=== PATIENT | female | born 1960 | race Caucasian/White ===

== ENCOUNTER 2016-09-10 07:29 | Day surgery (SDC) | payer BC ==
[2016-09-04 14:06] VITALS: BMI 16.5
[~2016-09-10 07:29] MED LIST: LACTATED RINGERS 1,000 ML IV SCH
[2016-09-10 07:56] VITALS: RESP 16; TEMP 97.8
[2016-09-10] MEDS ORDERED: LIDOCAINE 1% 20 ML VIAL (10MG/ML) FOR IV START INTRADERMA ONE (08:10)
[2016-09-10] MEDS ORDERED: fentaNYL (PF) 50 MCG/ML 2 ML AMP ONE (08:48)
[2016-09-10] MEDS ORDERED: PROPOFOL 10 MG/ML 20 ML VIAL IV ONE (08:48)
[2016-09-10] MEDS ORDERED: MIDAZOLAM 2 MG/2 ML VIAL ONE (08:48)
--- NOTE | 2016-09-10 09:14 | P.PCN ---
Date of Procedure: 09/10/16 Procedure(s) Performed: Procedure: Esophagogastroduodenoscopy and biopsy. Preoperative diagnosis: Epigastric pain and weight loss. Postoperative diagnosis: 1. Small sliding hiatal hernia with no obvious esophagitis or complicated reflux disease. 2. Mild gastritis and duodenitis. 3. Multiple biopsies obtained from the duodenum, antrum and esophagus. Preparation and sedation: Was provided by anesthesia. Brief clinical history: The patient is a 56-year-old female who is referred for epigastric pain which she had since around January of last year. She failed to respond to a trial of medical therapy. CT of the abdomen was not revealing. She had prior cholecystectomy. She has lost around 8 pounds since that time. This evaluation is to assess for peptic ulcer disease or other pathology. Procedure: With the patient on her left lateral decubitus position and after informed consent and adequate sedation, I passed the Olympus-GIF 160 video upper endoscope through the cricopharyngeus down the esophagus. GE junction was around 38 cm from the incisors and there was a small sliding hiatal hernia between 1 and 2 cm. There was no evidence of erosions, ulcers, strictures or Hylton's esophagus. The endoscope was then passed into the stomach which was insufflated with air and inspected in detail including the retroflex view in the cardia. There was some mottling and erythema in the antrum but no ulcers or erosions. Similar findings were seen in the duodenum without any ulcers, erosions or bleeding. I obtained multiple biopsies from the duodenum, antrum and esophagus then the endoscope was withdrawn. The patient tolerated the procedure well. Plan: The patient was reassured. Will await biopsy results. She'll follow-up with you as planned and I will be happy to see in the office of her symptoms persist.
[2016-09-10 09:43] VITALS: BP 123/73; PULSE 87
== END 2016-09-10 09:57 | disposition home or self-care (01) ==
LOC: ORWHC2ENDO 07:29
DX: K29.50 Unspecified chronic gastritis without bleeding (principal); K20.9 Esophagitis, unspecified; K44.9 Diaphragmatic hernia without obstruction or gangrene; J44.9 Chronic obstructive pulmonary disease, unspecified; J45.909 Unspecified asthma, uncomplicated; E07.9 Disorder of thyroid, unspecified; Z88.0 Allergy status to penicillin; Z79.1 Long term (current) use of non-steroidal anti-inflammatories (NSAID); Z79.899 Other long term (current) drug therapy; Z90.49 Acquired absence of other specified parts of digestive tract
CPT/HCPCS: 88305; 88342; 43239; J2250; J3010; J2704; 99153

== ENCOUNTER → 2017-02-15 | Outpatient (CLI) | payer BC ==
--- NOTE | 2017-02-15 08:59 | MM ---
Reason for exam: clinical finding. Last mammogram was performed 1 year ago. History: Patient is postmenopausal. Family history of breast cancer in paternal aunt at age 58. Physical Findings: Nurse did not find any significant physical abnormalities on exam. MG Diagnostic Mammo w CAD MICHAEL Bilateral CC and MLO view(s) were taken. Prior study comparison: February 14, 2016, bilateral MG screening mammo w CAD. February 04, 2015, bilateral MG screening mammo w CAD. The breast tissue is heterogeneously dense. This may lower the sensitivity of mammography. There is no discrete abnormality. No significant new findings when compared with previous films. These results were verbally communicated with the patient and result sheet given to the patient on 02/15/17. ASSESSMENT: Negative, BI-RAD 1 RECOMMENDATION: Routine screening mammogram of both breasts in 1 year.
== END | disposition home or self-care (01) ==
LOC: RADMAMWWP 07:00
PROVIDERS: ATTEND Obstetrics & Gynecology
DX: N64.4 Mastodynia (principal)

== ENCOUNTER → 2017-06-17 | Outpatient (CLI) | payer BC ==
--- NOTE | 2017-06-17 21:40 | XR ---
EXAMINATION TYPE: XR chest 2V DATE OF EXAM: 06/17/2017 COMPARISON: None HISTORY: 57-year-old female cough, chest pain, elevated WBC TECHNIQUE: PA and lateral views FINDINGS: The cardiomediastinal silhouette, aorta, and pulmonary vasculature are within normal limits. Hyperinf lation with flattening of the hemidiaphragms. Lungs and pleural spaces are clear. IMPRESSION: No acute cardiopulmonary process. Correlate for underlying COPD.
== END ==
LOC: RADXRYALE 15:20
PROVIDERS: ATTEND Physician Assistant Medical
DX: D72.829 Elevated white blood cell count, unspecified (principal); R05 Cough; R07.9 Chest pain, unspecified
CPT/HCPCS: 71020

== ENCOUNTER → 2018-03-31 | Outpatient (CLI) | payer BC ==
--- NOTE | 2018-03-31 09:32 | US ---
EXAMINATION TYPE: US duplex aorta DATE OF EXAM: 03/31/2018 COMPARISON: CT abdomen and pelvis February 01 2016 CLINICAL HISTORY: Left Upper Lower Quad pain R10.32 R10.12. Midline and left flank pain x couple mo nths EXAM MEASUREMENTS: Abdominal Aorta: Proximal: 2.2 x 2.3cm Mid: 1.5 x 1.8cm Distal: 1.3 x 1.5cm Right Iliac: 0.7 x 0.7cm Left Iliac: 0.6 x 0.7cm Mild to moderate plaque is seen throughout the visualized aorta seen through the bifurcation. IMPRESSION: No AAA.
--- NOTE | 2018-03-31 09:33 | US ---
EXAMINATION TYPE: US kidneys/renal and bladder DATE OF EXAM: 03/31/2018 COMPARISON: CT abdomen and pelvis February 01 2016 CLINICAL HISTORY: Left Upper Lower Quad pain R10.32 R10.12. Midline and left flank pain x couple mo nths, frequent UTI's EXAM MEASUREMENTS: Right Kidney: 9.5 x 3.8 x 4.5 cm Left Kidney: 9.9 x 5.0 x 4.0 cm Right Kidney: no hydronephrosis or masses seen Left Kidney: no hydronephrosis or masses seen Bladder: wnl Bilateral Jets seen: yes There is no evidence for hydronephrosis at this point in time. No nephrolithiasis is seen. No jj s are identified. The urinary bladder is anechoic. Bilateral ureteral jets are seen. IMPRESSION: Unremarkable study.
== END | disposition home or self-care (01) ==
LOC: RADUSMAIN 08:19
PROVIDERS: ATTEND Family Medicine
DX: R10.32 Left lower quadrant pain (principal); R35.0 Frequency of micturition; R31.9 Hematuria, unspecified
CPT/HCPCS: 76770; 93979

== ENCOUNTER → 2020-10-28 | Outpatient (CLI) | payer BC ==
--- NOTE | 2020-10-31 13:44 | USB ---
Reason for exam: clinical finding. History: Patient is postmenopausal. Family history of breast cancer in paternal aunt at age 58. Indicated problem(s): lump or thickening in the left breast. Physical Findings: Nurse Summary: Patient complains of left axilla/upper outer quadrant pain x 3 months (nurse darci). US Breast LT Left complete breast ultrasound includes all four quadrants, the retroareolar region and axilla. Finding demonstrates no cystic or solid lesion seen. These results were verbally communicated with the patient and result sheet given to the patient on 10/28/20. ASSESSMENT: Negative, BI-RAD 1 RECOMMENDATION: Follow-up diagnostic mammogram of both breasts. Manage on a clinical basis with regard to left pain. Due now for mammogram. Patient states she will come back to mammogram when pain gets better.
== END | disposition home or self-care (01) ==
LOC: RADUSWWP 08:05
PROVIDERS: ATTEND Family Medicine
DX: N64.4 Mastodynia (principal); Z78.0 Asymptomatic menopausal state; Z80.3 Family history of malignant neoplasm of breast

== ENCOUNTER → 2021-01-18 | Outpatient (CLI) | payer BC ==
--- NOTE | 2021-01-18 15:57 | US ---
EXAMINATION TYPE: US thyroid st tissue head/neck DATE OF EXAM: 01/18/2021 COMPARISON: NONE CLINICAL HISTORY: R94.6 abnormal results of thyroid function stud,E1310,R5383. Abn labs GLAND SIZE: Right Lobe: 5.1 x 2.0 x 2.8 cm Overall Parenchyma: heterogenous Left Lobe: 5.9 x 1.3 x 2.2 cm Overall Parenchyma: heterogeneous Isthmus Thickness: 0.4 cm NODULES RIGHT: # of nodules measured on right: 1 1. 2.1 X 1.9 x 1.6 cm, mid , solid or almost completely solid, isoechoic nodule, which is taller th an wide, with ill-defined margins, with punctate echogenic foci. Prior size: DELIVERY TECHNICIAN LEFT: # of nodules measured on left: 0 ISTHMUS: # of nodules measured in the isthmus: 0 Bilateral neck scanned, no evidence of lymphadenopathy. Heterogeneous normal-sized thyroid with suspicious 2.1 cm right thyroid nodule. IMPRESSION: As above. Sampling is recommended. 2017 ACR TI-RADS LEVEL: TI-RADS 5 - Highly Suspicious: Follow if > 0.5 cm, FNA if > 1.0 cm *Highest TI-RADS level nodule reported
== END | disposition home or self-care (01) ==
LOC: RADUSWWP 15:28
PROVIDERS: ATTEND Family Medicine
DX: E04.1 Nontoxic single thyroid nodule (principal); R13.10 Dysphagia, unspecified; R53.83 Other fatigue
CPT/HCPCS: 76536

== ENCOUNTER 2021-02-16 09:31 | Day surgery (SDC) | payer BC ==
[2021-02-16 09:47] VITALS: BP 137/76; PULSE 87; RESP 16; TEMP 99
--- NOTE | 2021-02-16 11:51 | US ---
EXAMINATION TYPE: US FNA first lesion DATE OF EXAM: 02/16/2021 COMPARISON: NONE HISTORY: Thyroid nodule. Maximal barrier technique was utilized. After informed consent, skin overlying the right lobe thyroi d nodule was localized with ultrasound and the overlying skin prepped and draped. Ultrasound was util ized using sterile technique. Lidocaine was used for local anesthesia. Five passes with a 25-gauge n eedle were made into the nodule and aspirated specimen was submitted to cytology. Following the proc edure hemostasis achieved. No immediate complication. The patient discharged in stable condition. IMPRESSION: STATUS POST ULTRASOUND GUIDED FINE NEEDLE ASPIRATION OF RIGHT THYROID NODULE, PATHOLOGY I S PENDING. THIS PROCEDURE WAS PERFORMED BY THE UNDERSIGNED.
== END 2021-02-16 11:10 | disposition home or self-care (01) ==
LOC: RADPROMAIN 09:31
PROVIDERS: ATTEND Family Medicine
DX: E04.1 Nontoxic single thyroid nodule (principal); R93.0 Abnormal findings on diagnostic imaging of skull and head, not elsewhere classified
CPT/HCPCS: 10005; 88173; 88305

== ENCOUNTER 2021-04-25 08:54 | Day surgery (SDC) | payer BC ==
[2021-04-21 09:53] VITALS: BMI 19.5
[~2021-04-25 08:54] MED LIST changes: -LACTATED RINGERS 1,000 ML IV SCH; +LIDOCAINE 1% (10MG/ML) FOR IV START INTRADERMA PRN
[2021-04-25 09:19] VITALS: TEMP 97.6
[2021-04-25] MEDS: LACTATED RINGERS 1,000 ML IV SCH ×2 (09:31→09:39)
[2021-04-25] MEDS ORDERED: fentaNYL (PF) 50 MCG/ML 2 ML AMP ONE (09:42)
[2021-04-25] MEDS ORDERED: MIDAZOLAM 2 MG/2 ML VIAL ONE (09:42)
[2021-04-25] MEDS ORDERED: PROPOFOL 10 MG/ML 20 ML VIAL IV ONE (09:42)
--- NOTE | 2021-04-25 09:44 | P.GSHP ---
History of Present Illness H&P Date: 04/25/21 Chief Complaint: Colon cancer screening 61-year-old female here today for colonoscopy. Last colonoscopy 5 years ago. Patient has a history of adenomatous colon polyps. Was having some diarrhea previously. That is resolved. No rectal bleeding. Past Medical History Past Medical History: COPD, GERD/Reflux Additional Past Medical History / Comment(s): C/O diarrhea daily from 03/25/21- 04/09/21 and again on 04/13/21 and then diarrhea and vomiting on 04/20/21. States calling Dr Blum to notify him, Colonoscopy was scheduled prior to having these symptoms. "Myocardial strain from COPD flare up 11/30." History of Any Multi-Drug Resistant Organisms: None Reported Past Surgical History: Cholecystectomy, Orthopedic Surgery Additional Past Surgical History / Comment(s): Ovary removed, colonoscopy, right carpal tunnel surgery. Past Anesthesia/Blood Transfusion Reactions: No Reported Reaction Past Psychological History: No Psychological Hx Reported Smoking Status: Current every day smoker Past Alcohol Use History: None Reported Additional Past Alcohol Use History / Comment(s): Has been smoking for 48 yrs, 3/4 PPD. Past Drug Use History: None Reported - Past Family History Mother Family Medical History: Cancer Medications and Allergies Home Medications Medication Instructions Recorded Confirmed Type Albuterol Sulfate [Proair 90 mcg INHALATION DAILY PRN 02/07/21 04/25/21 History Respiclick] Aspirin [Adult Low Dose Aspirin EC] 81 mg PO DAILY 02/07/21 04/25/21 History Fluticasone Propion/Salmeterol 1 inhalation PO DAILY 02/07/21 04/25/21 History [Fluticasone-Salmeterol 250-50] Losartan [Cozaar] 25 mg PO QAM 02/07/21 04/25/21 History Metoprolol Succinate [Toprol XL] 25 mg PO QAM 02/07/21 04/25/21 History Albuterol Sulfate [Proair Hfa] 1 - 2 puff INHALATION DIRECTED 04/21/21 04/25/21 History All Day Allergy 1 tab PO DAILY 04/21/21 04/25/21 History Cranberry Fruit Concentrate [Azo 250 mg PO DAILY 04/21/21 04/25/21 History Cranberry] Ipratropium [place] [Atrovent Hfa] 2 puff INHALATION DIRECTED 04/21/21 04/25/21 History Zinc 25 mg PO DAILY 04/21/21 04/25/21 History Allergies Allergy/AdvReac Type Severity Reaction Status Date / Time Penicillins Allergy Anaphylaxis Verified 04/25/21 09:19 pneumococcal vaccine Allergy Swelling Verified 04/25/21 09:19 [From Pneumovax-23] Surgical - Exam Vital Signs Temp Pulse Resp BP Pulse Ox 97.6 F 89 18 126/65 100 04/25/21 09:16 04/25/21 09:16 04/25/21 09:16 04/25/21 09:16 04/25/21 09:16 Physical exam: General: Well-developed, well-nourished HEENT: Normocephalic, sclerae nonicteric Abdomen: Nontender, nondistended Extremities: No edema Neuro: Alert and oriented Assessment and Plan (1) Colon cancer screening Narrative/Plan: Will proceed with colonoscopy Current Visit: Yes Status: Acute Code(s): Z12.11 - ENCOUNTER FOR SCREENING FOR MALIGNANT NEOPLASM OF COLON SNOMED Code(s): 643882906
--- NOTE | 2021-04-25 10:04 | P.PCN ---
Date of Procedure: 04/25/21 Procedure(s) Performed: PREOPERATIVE DIAGNOSIS: Colon cancer screening, history of polyps POSTOPERATIVE DIAGNOSIS: Transverse colon possible polyp, diverticulosis PROCEDURE: Colonoscopy with biopsy ANESTHESIA: MAC SURGEON: Luis F Blum M.D. SPECIMENS: Transverse colon polyp ENDOSCOPIC PROCEDURE: The patient was placed on the endoscopy table in the left decubitus position. The Olympus colonoscope was inserted into the anus and passed under direct visualization to the base of the cecum. The appendiceal orifice was visualized. From that point the scope was slowly withdrawn inspecting all surfaces carefully. There were no neoplastic inflammatory or polypoid lesions throughout the cecum or ascending colon. In the transverse colon was noted to be a sessile area that measured 3 cm in diameter that had some mild induration and slight elevation of the mucosal surfaces. This was considered a possible adenomatous polyp. Cold biopsies were taken of that area. The remainder of the transverse descending sigmoid and rectum appeared normal. There was mild left-sided diverticulosis. Digital rectal examination was normal. The patient was taken to the recovery room in stable condition per anesthesia guidelines. RECOMMENDATIONS: Await biopsy results. If adenomatous polyp identified will require repeat endoscopy with EMR or fulguration. Otherwise plan follow-up colonoscopy 5 years.
[2021-04-25 10:09] VITALS: RESP 16
[2021-04-25 10:27] VITALS: BP 107/74; PULSE 92
== END 2021-04-25 10:42 | disposition home or self-care (01) ==
LOC: ORWHC2ENDO 08:54
PROVIDERS: ATTEND Surgery
DX: Z12.11 Encounter for screening for malignant neoplasm of colon (principal); F17.200 Nicotine dependence, unspecified, uncomplicated; J44.9 Chronic obstructive pulmonary disease, unspecified; K21.9 Gastro-esophageal reflux disease without esophagitis; D12.3 Benign neoplasm of transverse colon; Z79.51 Long term (current) use of inhaled steroids; Z79.82 Long term (current) use of aspirin; Z86.010 Personal history of colon polyps; Z88.0 Allergy status to penicillin; I10 Essential (primary) hypertension; Z79.899 Other long term (current) drug therapy; Z90.49 Acquired absence of other specified parts of digestive tract; Z90.721 Acquired absence of ovaries, unilateral
CPT/HCPCS: 45380; 88305; J2250; J3010; J2704

== ENCOUNTER → 2021-09-05 | Outpatient (CLI) | payer BC ==
--- NOTE | 2021-09-05 23:25 | US ---
EXAMINATION TYPE: US thyroid st tissue head/neck DATE OF EXAM: 09/05/2021 COMPARISON: 01/18/2021 CLINICAL HISTORY: 61-year-old female R94.6 R13.10 R53.83 E07.9. Follow up thyroid nodule, history of thyroid FNA Technique: Multiple sonographic images of the thyroid gland are obtained. FINDINGS: GLAND SIZE: Right Lobe: 5.3 x 2.1 x 2.1 cm Overall Parenchyma: homogenous Left Lobe: 5.2 x 2.1 x 1.5 cm Overall Parenchyma: homogeneous Isthmus Thickness: 0.3 cm NODULES RIGHT: # of nodules measured on right: 1 1. 1.7 X 1.7 x 1.4 cm, mid mid, solid or almost completely solid, isoechoic nodule, which is as purnima l as it is wide, with ill-defined margins, with echogenic foci. Prior size: 2.1 x 1.9 x 1.6 cm LEFT: # of nodules measured on left: 1 1. 0.8 X 0.5 x 0.7 cm, upper lateral, solid or almost completely solid, isoechoic nodule, which is wider than tall, with smooth margins, without echogenic foci. Prior size: no previous ISTHMUS: # of nodules measured in the isthmus: 0 Bilateral neck scanned, no evidence of lymphadenopathy. IMPRESSION: 1. Multinodular goiter. 2. Dominant 1.7 cm solid nodule right mid pole, now smaller, previously measuring 2.1 cm. 3. An 8 mm solid TR3 nodule left upper pole not clearly seen previously. This can be reassessed at fo llow-up.
== END | disposition home or self-care (01) ==
LOC: RADUSWWP 13:31
PROVIDERS: ATTEND Family Medicine
DX: E04.2 Nontoxic multinodular goiter (principal)
CPT/HCPCS: 76536

== ENCOUNTER 2021-11-07 09:20 | Day surgery (SDC) | payer BC ==
[2021-11-02 15:14] VITALS: BMI 19.3
[~2021-11-07 09:20] MED LIST changes: +LACTATED RINGERS 1,000 ML IV SCH; -LIDOCAINE 1% (10MG/ML) FOR IV START INTRADERMA PRN
[2021-11-07] MEDS ORDERED: LIDOCAINE 1% (10MG/ML) FOR IV START INTRADERMA ONE (10:06)
[2021-11-07 10:11] VITALS: TEMP 97.8
[2021-11-07] MEDS ORDERED: PROPOFOL 10 MG/ML 20 ML VIAL IV ONE (10:52)
[2021-11-07] MEDS ORDERED: LIDOCAINE 1% INJ 10MG/ML (20 ML MDV) ONE (10:52)
--- NOTE | 2021-11-07 11:05 | P.PCN ---
Date of Procedure: 11/07/21 Procedure(s) Performed: BRIEF HISTORY: Patient is a 61-year-old, pleasant, white female scheduled for an upper endoscopy as a part of evaluation of epigastric pain and GERD of several years duration. She was on Prilosec 20 mg daily for several years and recently was changed to Pepcid 20 mg twice daily and still has no improvement in his symptoms.. PROCEDURE PERFORMED: Esophagogastroduodenoscopy with biopsy. PREOPERATIVE DIAGNOSIS: GERD/defects esophagus. IV sedation per anesthesia. PROCEDURE: After informed consent was obtained, the patient was brought into the endoscopy unit. IV sedation was administered by Anesthesia under continuous monitoring. Initially the Olympus GIF-140 video endoscope was inserted into the mouth. Esophagus intubated without any difficulty. It was gradually advanced into the stomach and duodenum and carefully examined. The bulb had mild duodenitis and the second part of the duodenum appeared normal. The scope at this time was withdrawn to the stomach, adequately insufflated with air, and upon careful examination, mucosa of the antrum scattered erosions and erythema consistent with gastritis and biopsies were done from this area. The, body, cardia and the fundus appeared normal. The scope was then withdrawn into the esophagus. The GE junction was located at 39 cm from the incisors. Under size hiatal hernia noted. The esophagus appeared normal. There were no erosions or ulcerations seen and biopsies were done from the distal esophagus and the patient tolerated the procedure well. IMPRESSION: 1. Mild antral gastritis and duodenitis. 2. Small to moderate size hiatal hernia but no evidence of esophagitis. RECOMMENDATIONS: The findings of this examination were discussed with the patient as well as a family. She was advised to continue with Pepcid 20 mg twice daily and follow antireflux measures. She will benefit from adding Carafate 1 g 4 times daily for her symptoms. She was advised to follow with Dr. Ridley as scheduled.
[2021-11-07 11:27] VITALS: BP 100/57; PULSE 95; RESP 20
== END 2021-11-07 11:56 | disposition home or self-care (01) ==
LOC: ORWHC2ENDO 09:20
PROVIDERS: ATTEND Internal Medicine Gastroenterology
DX: K29.50 Unspecified chronic gastritis without bleeding (principal); K21.00 Gastro-esophageal reflux disease with esophagitis, without bleeding; K29.80 Duodenitis without bleeding; K44.9 Diaphragmatic hernia without obstruction or gangrene; I11.0 Hypertensive heart disease with heart failure; I50.9 Heart failure, unspecified; I42.9 Cardiomyopathy, unspecified; F17.200 Nicotine dependence, unspecified, uncomplicated; Z79.82 Long term (current) use of aspirin; Z79.899 Other long term (current) drug therapy; Z90.49 Acquired absence of other specified parts of digestive tract; Z98.890 Other specified postprocedural states; Z88.0 Allergy status to penicillin; Z88.8 Allergy status to other drugs, medicaments and biological substances
CPT/HCPCS: 88305; 43239; J2001; J2704

== ENCOUNTER → 2021-12-06 | Outpatient (CLI) | payer BC ==
--- NOTE | 2021-12-07 06:25 | US ---
EXAMINATION TYPE: US thyroid st tissue head/neck DATE OF EXAM: 12/06/2021 COMPARISON: US 2021 CLINICAL HISTORY: Goiter E04.2. Thyroid nodules, history of FNA GLAND SIZE: Right Lobe: 5.7 x 2.0 x 1.9 cm Overall Parenchyma: homogenous Left Lobe: 4.9 x 1.7 x 1.3 cm Overall Parenchyma: homogeneous Isthmus Thickness: 0.3 cm NODULES RIGHT: # of nodules measured on right: 1 1. 1.9 X 1.8 x 1.5 cm, mid mid, solid or almost completely solid, hypoechoic nodule, which is talle r than wide, with ill-defined margins, with echogenic foci. Prior size: 1.7 x 1.7 x 1.4 cm LEFT: # of nodules measured on left: 1 1. 0.7 X 0.5 x 0.6 cm, upper lateral, solid or almost completely solid, isoechoic nodule, which is wider than tall, with ill-defined margins, without echogenic foci. Prior size: 0.8 x 0.5 x 0.7 cm ISTHMUS: # of nodules measured in the isthmus: 0 Bilateral neck scanned, no evidence of lymphadenopathy. Homogeneous normal-sized thyroid with stable bilateral single nodules as noted above. IMPRESSION: As above. No significant change from prior.
== END | disposition home or self-care (01) ==
LOC: RADUSWWP 10:24
PROVIDERS: ATTEND Family Medicine
DX: E04.2 Nontoxic multinodular goiter (principal)
CPT/HCPCS: 76536

== ENCOUNTER → 2022-04-30 | Outpatient (CLI) | payer BC ==
--- NOTE | 2022-04-30 09:39 | MM ---
Reason for Exam: Follow-up at short interval from prior study. Last mammogram was performed 1 year(s) and 3 month(s) ago. Patient History: Menarche at age 13. First Full-Term at age 19. Right ovary removed at age 27. Postmenopausal. Paternal aunt had breast cancer, age 58. Risk Values: Katrin 5 year model risk: 1.1%. NCI Lifetime model risk: 5.0%. Prior Study Comparison: 02/04/2015 Bilateral Screening Mammogram, [facility]. 02/14/2016 Bilateral Screening Mammogram, [facility]. 02/15/2017 Bilateral Diagnostic Mammogram, [facility]. 11/21/2018 Bilateral MG screening mammo w CAD - 2, [facility] [place] . 01/20/2021 Bilateral MG screening mammo w CAD - 2, [facility] [place] . Tissue Density: There are scattered fibroglandular densities. Findings: Analyzed By CAD. Chronic nodularity posterior central left MLO view. Benign gliosis calcification on the left. No significant change from prior exams. Overall Assessment: Benign, BI-RAD 2 Management: Screening Mammogram of both breasts in 1 year. 1. Patient should continue monthly self breast exams. 2. A clinical breast exam by your physician is recommended on an annual basis. 3. This exam should not preclude additional follow-up of suspicious palpable abnormalities. Electronically signed and approved by: Carl Barraza M.D. Radiologist
== END | disposition home or self-care (01) ==
LOC: RADMAMWWP 08:43
PROVIDERS: ATTEND Family Medicine
DX: R92.8 Other abnormal and inconclusive findings on diagnostic imaging of breast (principal); Z78.0 Asymptomatic menopausal state; Z80.3 Family history of malignant neoplasm of breast
CPT/HCPCS: 77066

== ENCOUNTER 2022-07-02 12:39 | Day surgery (SDC) | payer BC ==
[2022-07-02 13:13] VITALS: TEMP 98.3
--- NOTE | 2022-07-02 13:55 | US ---
ULTRASOUND GUIDED FNA THYROID BIOPSY: CLINICAL HISTORY: Right thyroid nodule FINDINGS: The procedure was explained to the patient. The risks, complications, benefits and alternatives were discussed and any questions were answered. Informed consent was obtained. Patient was placed supin e on the ultrasound table and prepped and draped in the usual sterile fashion. Utilizing a 25 gauge needle, five passes were made into the right thyroid nodule. Patient was stable throughout the procedure. Pathology is pending. All elements of maximal barrier technique were utilized. IMPRESSION: 1. Successful ultrasound guided FNA thyroid biopsy.
[2022-07-02 14:08] VITALS: BP 115/75; PULSE 89; RESP 18
== END 2022-07-02 13:55 | disposition home or self-care (01) ==
LOC: RADPROMAIN 12:39
PROVIDERS: ATTEND Internal Medicine Endocrinology, Diabetes & Metabolism
DX: E04.1 Nontoxic single thyroid nodule (principal); Z85.828 Personal history of other malignant neoplasm of skin
CPT/HCPCS: 10005; 88173; 88305

== ENCOUNTER → 2023-04-23 | Outpatient (CLI) | payer BC ==
--- NOTE | 2023-04-23 11:07 | CTL ---
EXAMINATION TYPE: CT Low Dose Lung DATE OF EXAM ORDERED: 04/23/2023 COMPARISON: None HISTORY: . Low Dose CT Lung Screening CT DLP: [address] CTDI: 1.1 mGy IV CONTRAST USED: None. SCREENING VISIT: First visit COMPARISON: None. TECHNIQUE: Low dose computed tomography scan was performed through the chest at 1 millimeter thick se ctions and reconstructed images in the coronal plane at [address] DIAGNOSTIC QUALITY: Satisfactory FINDINGS: LUNG NODULES: Right upper lobe pulmonary nodule measures 3.1 mm image 69. Right apical pulmonary nodu le measures 4 mm image 47. Left upper lobe pulmonary nodule measures 3.1 mm image 108. LUNGS: COPD: Severity: Mild to moderate Fibrosis: Severity:None Lymph nodes: None Other findings: None RIGHT PLEURAL SPACE: Effusion: None Calcification: None Thickening: None Pneumothorax: None LEFT PLEURAL SPACE: Effusion: None Calcification: None Thickening: None Pneumothorax: None HEART: Heart Size: Mildly enlarged Coronary calcification: Mild Pericardial effusion: None OTHER FINDINGS: Upper abdomen: No significant abnormality Bony thorax: Degenerative changes Supraclavicular region: No significant abnormalityOther: No significant abnormalityI IMPRESSION: Sub-5 mm pulmonary nodules noted as discussed above. FOLLOW UP CT CHEST RECOMMENDATION: Follow-up screening in one year CT LUNG RAD: LUNG RAD CATEGORY 2 benign appearance and/or behavior.
== END | disposition home or self-care (01) ==
LOC: RADCTMAIN 10:25
PROVIDERS: ATTEND Family Medicine
DX: Z12.2 Encounter for screening for malignant neoplasm of respiratory organs (principal); R91.8 Other nonspecific abnormal finding of lung field; F17.210 Nicotine dependence, cigarettes, uncomplicated
CPT/HCPCS: 71271

== ENCOUNTER → 2023-04-30 | Outpatient (CLI) | payer BC ==
--- NOTE | 2023-05-02 09:20 | MM ---
Reason for Exam: Screening (asymptomatic). Last screening mammogram was performed 12 month(s) ago. Patient History: Menarche at age 13. First Full-Term at age 19. Right ovary removed at age 27. Postmenopausal. Paternal aunt had breast cancer, age 58. Risk Values: Katrin 5 year model risk: 1.1%. NCI Lifetime model risk: 4.9%. Prior Study Comparison: 11/21/2018 Bilateral MG screening mammo w CAD - 2, [facility] [place] . 01/20/2021 Bilateral MG screening mammo w CAD - 2, [facility] [place] . 04/30/2022 Bilateral MG diagnostic mammo w CAD MICHAEL, [facility]. Tissue Density: The breast tissue is heterogeneously dense. This may lower the sensitivity of mammography. Findings: Analyzed By CAD. There is no suspicious group of microcalcifications or new suspicious mass in either breast. Overall Assessment: Negative, BI-RAD 1 Management: Screening Mammogram of both breasts in 1 year. . Patient should continue monthly self-breast exams. A clinical breast exam by your physician is recommended on an annual basis. This exam should not preclude additional follow-up of suspicious palpable abnormalities. Note on Katrin scores and lifetime risk: 1. A Katrin score greater than 3% is considered moderate risk. If this is the case, consider specialist referral to assess eligibility for a risk reducing agent. 2. If overall lifetime risk for the development of breast cancer is 20% or higher, the patient may qualify for future screening with alternating mammogram and breast MRI. Electronically signed and approved by: Florentin Strickland M.D. Radiologis
== END | disposition home or self-care (01) ==
LOC: RADMAMWWP 12:54
PROVIDERS: ATTEND Family Medicine
DX: Z12.31 Encounter for screening mammogram for malignant neoplasm of breast (principal); Z78.0 Asymptomatic menopausal state; Z80.3 Family history of malignant neoplasm of breast
CPT/HCPCS: 77063; 77067

== ENCOUNTER → 2024-06-24 | Outpatient (CLI) | payer BC ==
--- NOTE | 2024-06-28 17:38 | MM ---
Reason for Exam: Screening (asymptomatic). Last mammogram was performed 1 year(s) and 2 month(s) ago. Patient History: Menarche at age 13. First Full-Term at age 19. Right ovary removed at age 27. Postmenopausal. Paternal aunt had breast cancer, age 58. Risk Values: Katrin 5 year model risk: 1.2%. NCI Lifetime model risk: 4.7%. Prior Study Comparison: 01/20/2021 Bilateral MG screening mammo w CAD - 2, Dave Brandoncayla Hendrickson . 04/30/2022 Bilateral MG diagnostic mammo w CAD [facility]HA[facility], [facility]. 04/30/2023 Bilateral MG 3D screening mammo w/cad, [facility]. Tissue Density: The breasts are heterogeneously dense, which may obscure small masses. Findings: Analyzed By CAD. The pattern is symmetrical. No significant interval changes. Calcification in the left breast. No suspicious groups of microcalcifications, spiculated or lobular masses, architectural distortion or other secondary signs of malignancy are mammographically apparent. Overall Assessment: Benign, BI-RAD 2 Management: Screening Mammogram of both breasts in 1 year. A negative mammogram report should not preclude additional follow up of suspicious palpable abnormalities. Patient should continue monthly self breast exam. A clinical breast exam by your physician is recommended on an annual basis and results should be correlated with mammographic findings. Note on Katrin scores and lifetime risk: 1. A Katrin score greater than 3% is considered moderate risk. If this is the case, consider specialist referral to assess eligibility for a risk reducing agent. 2. If overall lifetime risk for the development of breast cancer is 20% or higher, the patient may qualify for future screening with alternating mammogram and breast MRI. [facility], , 06/28/2024 5:35 PM. Electronically signed and approved by: Rad Gutierrez D.O. Radiologis
--- NOTE | 2024-06-28 22:34 | BD ---
EXAMINATION TYPE: Axial Bone Density DATE OF EXAM: 06/24/2024 CLINICAL HISTORY: 64 years old Female. ICD-10 CODE: M94.9 DISORDER OF BONE , Additional History: Height: 63 Weight: 120 FRAX RISK QUESTIONS: Family History (Parent hip fracture): no History of Fracture in Adulthood: no Secondary Osteoporosis: yes Current Tobacco Use: yes RISK FACTORS HISTORY OF: Surgery to Spine/Hip(right/left)/Wrist (right/left): no MEDICATIONS: Thyroid Medications: no Osteoporosis Medications: no EXAM MEASUREMENTS: Bone mineral densitometry was performed using the Cream.HR System. Bone mineral density as measured about the Lumbar spine is: ----- L1-L4(G/cm2): 0.856 T Score Values are as follows: ----- L1: -2.3 ----- L2: -2.9 ----- L3: -2.4 ----- L4: -3.3 ----- L1-L4: -2.7 Z Score Values are as follows: ----- L1: -0.4 ----- L2: -1.0 ----- L3: -0.5 ----- L4: -1.5 ----- L1-L4: -0.8 Bone mineral density has: Decreased -4.8% since study of: 02/04/2015 Bone mineral density about the R hip (g/cm2): 0.638 Bone mineral density about the L hip (g/cm2): 0.668 T Score values are as follows: -----R Neck: -2.7 -----L Neck: -2.2 -----R Total: -2.9 -----L Total: -2.7 Z Score values are as follows: -----R Neck: -1.0 -----L Neck: -0.5 -----R Total: -1.5 -----L Total: -1.3 Bone mineral density has: Decreased -11.3% since study of: 02/04/2015 FRAX%s: The graph provided illustrates a 14.3% chance for a major osteoporotic fx and a 5.4% chance f or the hips probability for fx in 10 years time. IMPRESSION: Osteoporosis (T Score less than -2.5). There is increased fracture risk and therapy is usually indicated based on age. Re-Screen 1-2 years. NOTE: T-SCORE=SD OF THE YOUNG ADULT MEAN. [facility], , 06/28/2024 10:32 PM
== END | disposition home or self-care (01) ==
LOC: RADMAMWWP 09:47
PROVIDERS: ATTEND Family Medicine
DX: Z12.31 Encounter for screening mammogram for malignant neoplasm of breast (principal); R92.333 Mammographic heterogeneous density, bilateral breasts; M81.0 Age-related osteoporosis without current pathological fracture; Z78.0 Asymptomatic menopausal state; Z80.3 Family history of malignant neoplasm of breast
CPT/HCPCS: 77067; 77080

== ENCOUNTER → 2024-06-24 | Outpatient (CLI) | payer BC ==
--- NOTE | 2024-06-24 11:37 | CTL ---
EXAMINATION TYPE: CT Low Dose Lung DATE OF EXAM ORDERED: 06/24/2024 COMPARISON: CT Low Dose Lung 04/23/2023 CLINICAL INDICATION: Female, 64 years old with history of Z12.2 ENCNTR SCREEN FO F17.210 NICOTINE DEP ENDENCE; [facility], Personal hx nicotine dependence 1/2 ppd x 44 years, current smoker, hx COPD, Lung cance r screening, History of Smoking/tobacco use. TECHNIQUE: Low dose computed tomography scan was performed through the chest at 1 mm thick sections a nd reconstructed images in multiple planes at 1 mm and [address] DLP: 1.[address] CTDI: 63.60 mGy Automated exposure control for dose reduction was used. CT DIAGNOSTIC QUALITY: Satisfactory FINDINGS: Nodules: Stable right upper lobe 3.8 mm pulmonary nodule (series 4, image 55). Stable anterior right upper lobe 4.3 mm pulmonary nodule (series 4, image 75). Stable anterior left upper lobe 3.2 mm pulmonary nodule (series 4, image 119). No definitive new or enlarging pulmonary nodules. LUNGS: COPD: Severity: Mild Fibrosis: Severity: None Lymph nodes: None Other findings: Linear scarring within the medial aspects of the lingula and right middle lobe. RIGHT PLEURAL SPACE: Effusion: None Calcification: None Thickening: None Pneumothorax: None LEFT PLEURAL SPACE: Effusion: None Calcification: None Thickening: None Pneumothorax: None HEART: Heart Size: Normal Coronary Calcification: Small Pericardial Effusion: None OTHER FINDINGS: Upper abdomen: Gallbladder is surgically absent. Small hiatal hernia. Bony thorax: None Supraclavicular region: Macrocalcification within the right thyroid lobe. Other: Left side SVC which drains into the coronary sinus. IMPRESSION: 1. Few stable pulmonary nodules measuring less than 5 mm. No new or enlarging pulmonary nodules. 2. Mild COPD changes. CT LUNG RAD AND CT CHEST RECOMMENDATION: Lung-Rad 2 Benign Appearance or Behavior: Continue annual sc reening with LDCT in 12 months. S Modifier (other clinically significant findings): None [facility], , 06/24/2024 11:35 AM
== END | disposition home or self-care (01) ==
LOC: RADCTMAIN 10:31
PROVIDERS: ATTEND Family Medicine
DX: Z12.2 Encounter for screening for malignant neoplasm of respiratory organs (principal); J44.9 Chronic obstructive pulmonary disease, unspecified; F17.210 Nicotine dependence, cigarettes, uncomplicated
CPT/HCPCS: 71271